=== PATIENT | male | born 1995 | race Caucasian/White ===

== ENCOUNTER 2017-01-20 07:26 | Emergency (ER) | payer OTHER ==
[~2017-01-20] VITALS: Ht 175.3 cm; Wt 74.8 kg
[~2017-01-20 07:26] MED LIST: NO HISTORICAL MEDS
[2017-01-20] MEDS ORDERED: PRED20TA PO (08:19)
[2017-01-20] MEDS ORDERED: predniSONE 20 MG TAB PO ONE (08:30)
[2017-01-20 08:59] VITALS: BP 124/80
== END 2017-01-20 09:00 | disposition home or self-care (01) ==
LOC: M ED 08:26
DX: G56.03 Carpal tunnel syndrome, bilateral upper limbs (principal); J30.2 Other seasonal allergic rhinitis

== ENCOUNTER 2017-07-25 10:41 | Emergency (ER) | payer OTHER ==
[~2017-07-25] VITALS: Ht 177.8 cm; Wt 75.0 kg
[~2017-07-25 10:41] MED LIST changes: +PRED20TA PO
--- NOTE | 2017-07-25 12:08 | REP ---
LEFT FINGERS, FOUR VIEWS: HISTORY: Pain. There is no acute fracture or dislocation. The joint spaces are normal in appearance. IMPRESSION: There is no acute fracture or dislocation. Signed by Grayson Moran MD 07/25/2017 12:09 P
[2017-07-25 12:46] VITALS: BP 141/71
== END 2017-07-25 12:47 | disposition home or self-care (01) ==
LOC: M ED 10:41
DX: S60.032A Contusion of left middle finger without damage to nail, initial encounter (principal); W27.8XXA Contact with other nonpowered hand tool, initial encounter; Y92.59 Other trade areas as the place of occurrence of the external cause; Y93.89 Activity, other specified; Y99.0 Civilian activity done for income or pay